=== PATIENT | female | born 1955 ===

== ENCOUNTER 2024-08-03 15:28 | Emergency (ER) | payer MEDICARE, OTHER, SELFPAY ==
[2024-08-03 15:32] VITALS: BP 192/84; PULSE 78; RESP 16; TEMP 36.9; O2SAT 98; BMI 31.0
--- NOTE | 2024-08-03 16:31 | ED_ITS ---
HPI - Ear Problem <Haley Ponce PA-C - Last Filed: 08/03/24 18:23> General Chief complaint: Ear Stated complaint: Head/Ear/Jaw Px Time Seen by Provider: 08/03/24 16:18 Source: patient Mode of arrival: Ambulatory History of Present Illness HPI Narrative: Pt is a 69 year old female with complaints of 1 month of Sebastian TMJ pain, left ear pain, and decrease hearing, and left sided facial fullness. She has used OTC ear relief drops with no relief NO recent URI symptoms, or injury. Related Data Previous Rx's Medication Instructions Recorded amoxicillin 875 mg tablet 875 mg PO BID #10 tabs 08/03/24 Review of Systems <Haley Ponce PA-C - Last Filed: 08/03/24 18:23> Review of Systems Narrative: neg except as above ENT Comments: left ear pain, decrease hearing left ear. left sided facial fullness, Sebastian TMJ pain Patient History <Haley Ponce PA-C - Last Filed: 08/03/24 18:23> Social History Smoking Status: Never smoker Smoking Status: Never smoker Substance Use Type: does not use Exam <Haley Ponce PA-C - Last Filed: 08/03/24 18:23> Initial Vital Signs Initial Vital Signs: Vital Signs Temperature 98.4 F 08/03/24 15:32 Pulse Rate 78 08/03/24 15:32 Respiratory Rate 16 08/03/24 15:32 Blood Pressure 192/84 H 08/03/24 15:32 Pulse Oximetry 98 08/03/24 15:32 Oxygen Delivery Method Room Air 08/03/24 15:32 Const Other: Overal healthy female, NAD, AOX4 HENMT HENMT Other: sebastian TMJ pain, right ear normal exam, unable to view the left TM due to the TM being blocked by wax. after cleaning the left ear out with current and ear lavage the left TM is red and inflamed. Eyes Other: pupils, cass, eoms intact Neuro Other: CN grossly intact <Rajesh Olson DO - Last Filed: 08/03/24 18:31> Initial Vital Signs Initial Vital Signs: Vital Signs Temperature 98.4 F 08/03/24 15:32 Pulse Rate 78 08/03/24 15:32 Respiratory Rate 16 08/03/24 15:32 Blood Pressure 192/84 H 08/03/24 15:32 Pulse Oximetry 98 08/03/24 15:32 Oxygen Delivery Method Room Air 08/03/24 15:32 Course <Haley Ponce PA-C - Last Filed: 08/03/24 18:23> Orders Ordered: Carbamide Peroxide (Carbamide Peroxide Otic 15 Ml) 4 drops EAR-LEFT BID MICHAEL Discontinued Medications Carbamide Peroxide (Carbamide Peroxide Otic 15 Ml) 4 drops EAR-LEFT BID MICHAEL Vital Signs Vital signs: Vital Signs - 8 hr 08/03/24 15:32 Temperature 98.4 F Pulse Rate 78 Respiratory Rate 16 Blood Pressure 192/84 H Pulse Oximetry 98 Oxygen Delivery Method Room Air <Rajesh Olson DO - Last Filed: 08/03/24 18:31> Orders Ordered: Carbamide Peroxide (Carbamide Peroxide Otic 15 Ml) 4 drops EAR-LEFT BID MICHAEL Discontinued Medications Carbamide Peroxide (Carbamide Peroxide Otic 15 Ml) 4 drops EAR-LEFT BID MICHAEL Vital Signs Vital signs: Vital Signs - 8 hr 08/03/24 15:32 Temperature 98.4 F Pulse Rate 78 Respiratory Rate 16 Blood Pressure 192/84 H Pulse Oximetry 98 Oxygen Delivery Method Room Air Medical Decision Making <Haley Ponce PA-C - Last Filed: 08/03/24 18:23> [facility] Narrative Medical decision making narrative: 69 year old female 1 michael of SEBASTIAN TMJ pain left ear pain decreased hearing left facial fullness left ear lavage Diff Daig: TMJ, Left OM Discharge Plan Departure Patient Disposition: Home Clinical Impression: TMJ (temporomandibular joint syndrome) Otitis media Qualifiers: Otitis media type: suppurative Chronicity: acute Laterality: left Recurrence: non-recurrent Spontaneous tympanic membrane rupture: without spontaneous rupture Qualified Code(s): H66.002 - Acute suppurative otitis media without spontaneous rupture of ear drum, left ear Impacted cerumen Qualifiers: Laterality: left Qualified Code(s): H61.22 - Impacted cerumen, left ear Instructions: Cerumen Impaction Activity Restrictions/Additional Instructions: warm compresses, OTC motrin, follow up with PCp Prescriptions: New amoxicillin 875 mg tablet 875 mg PO BID Qty: 10 0RF Stand Alone Forms: Patient Portal/API ED Sign-out <Rajesh Olson, DO - Last Filed: 08/03/24 18:31> Cosign ED Attending Cosignature Attestation: Dr Olson Co-Sign Statement: I was available for consultation during this patient's emergency department visit. This chart is signed by myself for administrative purposes only. I did not have direct contact with this patient during this visit. They were seen independently by the APC.
[2024-08-03 18:33] VITALS: BP 194/87; PULSE 72; RESP 18; O2SAT 99
[2024-08-03] MEDS: CARBAMIDE PEROXIDE OTIC 15 ML 4 DROPS EAR-LEFT (18:33)
== END 2024-08-03 18:34 | disposition home or self-care (01) ==
PROVIDERS: Emergency Provider Physician Assistant
DX: H66.002 Acute suppurative otitis media without spontaneous rupture of ear drum, left ear (principal); H61.22 Impacted cerumen, left ear
CPT/HCPCS: 69209; 99282; 99283